=== PATIENT | male | born 1970 | race Caucasian/White ===

== ENCOUNTER 2021-04-26 21:50 | Inpatient (IN) | payer MEDICARE ==
[~2021-04-26] VITALS: Ht 182.9 cm; Wt 163.9 kg
[2021-04-26 22:12] LABS: RED BLOOD COUNT 3.77 M/UL (4.20-5.50); WHITE BLOOD COUNT 15.1 K/UL (4.5-11.0)
[2021-04-27 19:11] LABS: CANDIDA ALBICANS Not Detected (Negative); CANDIDA KRUSEI Not Detected (Negative); CANDIDA TROPICALIS Not Detected (Negative); ESCHERICHIA COLI Not Detected (Negative); HAEMOPHILUS INFLUENZAE Not Detected (Negative); KLEBSIELLA OXYTOCA Not Detected (Negative); KLEBSIELLA PNEUMONIAE Not Detected (Negative); KPC-CARBAPENEM-RESISTANCE GENE Not Detected (Negative); PROTEUS Not Detected (Negative); PSEUDOMONAS AERUGINOSA Not Detected (Negative); SERRATIA MARCESANS Not Detected (Negative); STAPHYLOCOCCUS AUREUS Not Detected (Negative); STREP AGALACTIAE (GROUP B) Not Detected (Negative); STREP PYOGENES (GROUP A) Not Detected (Negative); STREPTOCOCCUS Not Detected (Negative); vanA/B (VANCOMYCIN RESIST GENE Not Detected (Negative)
[2021-04-27 20:28] LABS: CANDIDA ALBICANS Not Detected (Negative); CANDIDA KRUSEI Not Detected (Negative); CANDIDA TROPICALIS Not Detected (Negative); ESCHERICHIA COLI Not Detected (Negative); HAEMOPHILUS INFLUENZAE Not Detected (Negative); KLEBSIELLA OXYTOCA Not Detected (Negative); KLEBSIELLA PNEUMONIAE Not Detected (Negative); KPC-CARBAPENEM-RESISTANCE GENE Not Detected (Negative); PROTEUS Not Detected (Negative); PSEUDOMONAS AERUGINOSA Not Detected (Negative); SERRATIA MARCESANS Not Detected (Negative); STREP AGALACTIAE (GROUP B) Not Detected (Negative); STREP PYOGENES (GROUP A) Not Detected (Negative); STREPTOCOCCUS Not Detected (Negative); vanA/B (VANCOMYCIN RESIST GENE Not Detected (Negative)
[2021-04-27 21:44] LABS: STAPHYLOCOCCUS DETECTED (Negative)
[2021-04-27 21:45] LABS: STAPHYLOCOCCUS DETECTED (Negative); STAPHYLOCOCCUS AUREUS DETECTED (Negative)
[2021-04-28 06:22] LABS: HEMOGLOBIN 9.4 gm/dl (14.0-17.5); RED BLOOD COUNT 3.59 M/UL (4.20-5.50); WHITE BLOOD COUNT 12.5 K/UL (4.5-11.0)
[2021-04-29 02:41] LABS: HEMOGLOBIN 9.1 gm/dl (14.0-17.5); RED BLOOD COUNT 3.49 M/UL (4.20-5.50)
[2021-04-29 02:48] LABS: WHITE BLOOD COUNT 7.5 K/UL (4.5-11.0)
[2021-04-30 08:30] LABS: RED BLOOD COUNT 3.76 M/UL (4.20-5.50); WHITE BLOOD COUNT 8.9 K/UL (4.5-11.0)
[2021-04-30 11:17] LABS: CREATININE, URINE 66.1 mg/dL (Not Estab.)
[2021-04-30 13:11] LABS: ANTI-DSDNA ANTIBODIES <1 IU/mL (0-9)
[2021-04-30 14:14] LABS: COMPLEMENT C3, SERUM 53 mg/dL (82-167); COMPLEMENT C4, SERUM 15 mg/dL (12-38)
[2021-05-01 04:11] LABS: HEMOGLOBIN 9.9 gm/dl (14.0-17.5); RED BLOOD COUNT 3.71 M/UL (4.20-5.50); WHITE BLOOD COUNT 6.8 K/UL (4.5-11.0)
[2021-05-02 02:11] LABS: HEMOGLOBIN 9.5 gm/dl (14.0-17.5); RED BLOOD COUNT 3.51 M/UL (4.20-5.50); WHITE BLOOD COUNT 6.4 K/UL (4.5-11.0)
[2021-05-02] MEDS ORDERED: PROTONIX 40 MG40 M1 PO (10:56)
[2021-05-02] MEDS ORDERED: AMLODIPINE BESYL5 MG PO (10:56)
[2021-05-02] MEDS ORDERED: FERROUS SULFAT325 M2 PO (10:56)
[2021-05-02] MEDS ORDERED: ALDACTONE 25MG25 MG PO (10:56)
[2021-05-02] MEDS ORDERED: LEVOFLOXACIN250 MG PO (10:56)
[2021-05-02] MEDS ORDERED: CORGARD 40MG TA40 MG PO (10:56)
[2021-05-02] MEDS ORDERED: BUMETANIDE1 MG PO (10:56)
[2021-05-02] MEDS ORDERED: daptomycin IV (10:59)
[2021-05-02 13:15] LABS: ANTIMYELOPEROXIDASE (MPO) ABS <9.0 U/mL (0.0-9.0); ANTIPROTEINASE 3 (PR-3) ABS <3.5 U/mL (0.0-3.5); CYTOPLASMIC (C-ANCA) <1:20 titer (Neg:<1:20); PERINUCLEAR (P-ANCA) <1:20 titer (Neg:<1:20)
== END 2021-05-02 17:24 | disposition home or self-care (01) | DRG 871 ==
LOC: ER1 21:50 → PROG CARE 23:25 → CDU 23:25 → CCU 04-27 07:55 → PROG CARE 04-27 19:43
PROVIDERS: Emergency Medicine; Internal Medicine; Internal Medicine Nephrology; ADMIT Internal Medicine
PROC: 3E03329 Introduction of Other Anti-infective into Peripheral Vein, Percutaneous Approach (ICD-10-PCS; 2021-04-26)
PROC: B24BZZZ Ultrasonography of Heart with Aorta (ICD-10-PCS; principal; 2021-04-27)
DX: A41.02 Sepsis due to Methicillin resistant Staphylococcus aureus (principal); I21.A1 Myocardial infarction type 2; I50.33 Acute on chronic diastolic (congestive) heart failure; J96.01 Acute respiratory failure with hypoxia; N39.0 Urinary tract infection, site not specified; I13.0 Hypertensive heart and chronic kidney disease with heart failure and stage 1 through stage 4 chronic kidney disease, or unspecified chronic kidney disease; Z68.42 Body mass index [BMI] 45.0-49.9, adult; N17.9 Acute kidney failure, unspecified; B96.20 Unspecified Escherichia coli [E. coli] as the cause of diseases classified elsewhere; K74.60 Unspecified cirrhosis of liver; N18.9 Chronic kidney disease, unspecified; E11.22 Type 2 diabetes mellitus with diabetic chronic kidney disease; D63.1 Anemia in chronic kidney disease; F15.10 Other stimulant abuse, uncomplicated; R65.20 Severe sepsis without septic shock; D50.9 Iron deficiency anemia, unspecified; E83.42 Hypomagnesemia; D69.6 Thrombocytopenia, unspecified; E83.39 Other disorders of phosphorus metabolism; G89.29 Other chronic pain; E66.01 Morbid (severe) obesity due to excess calories; B19.20 Unspecified viral hepatitis C without hepatic coma; E88.09 Other disorders of plasma-protein metabolism, not elsewhere classified; R16.1 Splenomegaly, not elsewhere classified; E87.6 Hypokalemia; Z20.822 Contact with and (suspected) exposure to COVID-19; Z90.49 Acquired absence of other specified parts of digestive tract; Z98.890 Other specified postprocedural states; Z82.49 Family history of ischemic heart disease and other diseases of the circulatory system; Z91.14 Patient's other noncompliance with medication regimen; Z87.891 Personal history of nicotine dependence
CPT/HCPCS: ECHO; 0241U; 36415; 36600; 71045; 76705; 80048; 80053; 80202; 80307; 81001; 82043; 82140; 82436; 82550; 82553; 82570; 82607; 82728; 82746; 82803; 82962; 83036; 83520; 83540; 83550; 83605; 83735; 83880; 84100; 84133; 84156; 84300; 84484; 85025; 85027; 85045; 85610; 86140; 86160; 86225; 86256; 87040; 87070; 87077; 87086; 87150; 87186; 87205; 93005; 93306; 96365; 96375; 99285; C9113; J0360; J0696; J0878; J1756; J1940; J2185; J3370; J3475; J7030; J7070; P9047

== ENCOUNTER 2021-05-23 21:44 | Emergency (ER) | payer MEDICARE ==
[~2021-05-23 21:44] MED LIST: ALDACTONE 25MG25 MG PO; AMLODIPINE BESYL5 MG PO; BUMETANIDE1 MG PO; CORGARD 40MG TA40 MG PO; FERROUS SULFAT325 M2 PO; LEVOFLOXACIN250 MG PO; PROTONIX 40 MG40 M1 PO; daptomycin IV
[2021-05-23 22:52] LABS: HEMOGLOBIN 9.2 gm/dl (14.0-17.5); RED BLOOD COUNT 3.28 M/UL (4.20-5.50)
[2021-05-24] MEDS ORDERED: LASIX40 MG PO (01:00)
== END 2021-05-24 01:10 | disposition home or self-care (01) ==
LOC: ER1 21:44
PROVIDERS: Student in an Organized Health Care Education/Training Program
PROC: 0W9G3ZZ Drainage of Peritoneal Cavity, Percutaneous Approach (ICD-10-PCS; principal; 2021-05-23)
DX: K74.60 Unspecified cirrhosis of liver (principal); R18.8 Other ascites; G47.30 Sleep apnea, unspecified; E11.9 Type 2 diabetes mellitus without complications; I10 Essential (primary) hypertension; E66.9 Obesity, unspecified; Z87.891 Personal history of nicotine dependence
CPT/HCPCS: 36600; 80053; 82550; 82553; 82803; 83690; 83880; 84484; 85025; 85610; 85730; 93005; 99285